=== PATIENT | male | born 1970 | race Caucasian/White ===

== ENCOUNTER 2022-02-21 12:19 | Day surgery (SDC) | payer BC, SELFPAY ==
--- NOTE | 2022-02-20 09:41 | HO.ANESPROP2 ---
Documented by User: Danette Aguirre NP 02/20/22 09:41 HPI - Anesthesia Eval Consult details Narrative: 51yo M for Upper Endoscopy and Colonoscopy [facility] [place] Past Medical History Medical History GERD (gastroesophageal reflux disease) HTN (hypertension) Hyperlipidemia Surgical History Surgical History History of appendectomy S/P excision of lipoma Social History Social History Patient Tobacco Use Status: Never used Tobacco Substance Use Type Other:: edibles Are you DNR?: No Advance Directives: No Advance Directives Information Provided: Yes Meds Allergies Allergy/AdvReac Type Severity Reaction Status Date / Time No Known Allergies Allergy Verified 02/17/22 10:47 Home Medications Medication Instructions Recorded Confirmed Last Taken Type atorvastatin 10 mg tablet 10 mg PO DAILY 02/17/22 02/17/22 Unknown History lisinopril 10 mg tablet 10 mg PO BID 02/17/22 02/17/22 Unknown History omeprazole 20 mg capsule,delayed 20 mg PO DAILY 02/17/22 02/17/22 Unknown History release Exam Exam Date and Time: February 20, 2022 0941 Assessment and Plan Assessment Anesthesia Assessment: Chart Reviewed Documented by User: Alyce Nails MD 02/21/22 15:53 [facility] [place] Past Medical History Medical History GERD (gastroesophageal reflux disease) HTN (hypertension) Hyperlipidemia Family History Family history of problems with anesthesia: No Surgical History Surgical History History of appendectomy S/P excision of lipoma History of Problems with Anesthesia: No Social History Social History Patient Tobacco Use Status: Never used Tobacco Substance Use Type Other:: edibles Are you DNR?: No Advance Directives: No Advance Directives Information Provided: Yes Meds Allergies Allergy/AdvReac Type Severity Reaction Status Date / Time No Known Allergies Allergy Verified 02/17/22 10:47 Home Medications Medication Instructions Recorded Confirmed Last Taken Type atorvastatin 10 mg tablet 10 mg PO DAILY 02/17/22 02/17/22 Unknown History lisinopril 10 mg tablet 10 mg PO BID 02/17/22 02/17/22 Unknown History omeprazole 20 mg capsule,delayed 20 mg PO DAILY 02/17/22 02/17/22 Unknown History release Exam Height,Weight and Vital Signs: Height 5 ft 9 in Weight 103.873 kg Vital Signs Temp Pulse Resp BP Pulse Ox O2 Del Method 97.9 F 72 16 149/94 H 97 02/21/22 13:04 02/21/22 13:04 02/21/22 13:04 02/21/22 13:04 02/21/22 13:04 02/21/22 13:04 Airway Mallampati Class: I TM Dist: >3cm Neck ROM: Full Loose/Missing/Broken Teeth: No (Per patient) Heart: RRR Lungs: CTAB Assessment and Plan Assessment Anesthesia Assessment: Anesthesia Plan Discussed Final Anesthetic Review Family History of Problems with Anesthesia: No History of Problems with Anesthesia: No NPO: Yes ASA Class: II Final Preanesthetic Review: No Changes in Pt Med Stat, Meds/Allgs Chart Reviewed, Consent Obtained/Reviewed and Anes Risks/Benef Reviewed Patient Risk: Low Procedure Risk: Low Assessment/Block/Sedation in SS: Assess/Block/Sedation-SS Anesthetic Plan Anesthetic Plan: MAC: Disposition: Standard PACU
[2022-02-21 13:04] VITALS: BP 149/94; PULSE 72; RESP 16; TEMP 36.6; O2SAT 97; BMI 33.7
[2022-02-21 13:09] VITALS: BMI 33.7
[2022-02-21] MEDS: Lactated Ringers 1,000 ML 100 ML IVCONT (13:17)
--- NOTE | 2022-02-21 13:40 | MHC.SHP ---
Pre-Procedural Eval Section A Date of Service: 02/21/22 The patient is an INPATIENT: No Changes since office visit: No Cold of Flu in the past 2 weeks, No New Medical Problems, No Changes in Medication and No Patient answered all questions The History & Physical has been completed within 30 days and I have reviewed it.: Yes Section B Chief Complaint: screening,reflux Allergies: Allergies Allergy/AdvReac Type Severity Reaction Status Date / Time No Known Allergies Allergy Verified 02/17/22 10:47 Plan I have reviewed the history and physical and performed a pertinent physical examination on my patient. No changes have occurred unless specified.
[2022-02-21 14:23] VITALS: BP 125/78; PULSE 72; RESP 16; TEMP 36.4; O2SAT 98
--- NOTE | 2022-02-21 14:29 | P.BOP_ITS ---
Brief Operative Note Date of Service: 02/21/22 Pre-op diagnosis: gerd,screening Post-op diagnosis: same (gastric and colon polyps) Procedure: egd, colonoscopy Surgeon: Kam Page Anesthesia: MAC Was an Student Education Specialist used for this Procedure?: No Estimated blood loss (mL): 5 Pathology: other Condition: stable Disposition: PACU
[2022-02-21 14:38] VITALS: BP 150/89; PULSE 72; RESP 18; TEMP 36.4; O2SAT 98
--- NOTE | 2022-02-21 23:58 | OP_ITS ---
SURGEON: Kam Page MD INDICATIONS: 1. Gastroesophageal reflux disease. 2. Colon cancer screening. PREOPERATIVE DIAGNOSIS: POSTOPERATIVE DIAGNOSIS: PROCEDURE PERFORMED: 1. Upper endoscopy with biopsy. 2. Colonoscopy to the terminal ileum with biopsy and snare polypectomy. ESTIMATED BLOOD LOSS: COMPLICATIONS: ANESTHESIA: ASSISTANTS: SPECIMENS: MEDICATIONS: Monitored anesthesia care. DESCRIPTION OF PROCEDURE: History and physical were performed. The risks and benefits of the procedure were explained to the patient. Informed consent was obtained. The patient was placed in the left lateral decubitus position. The Olympus video gastroscope was introduced into the esophagus, stomach, and duodenum. Examination was performed and the scope was removed. He was repositioned for colonoscopy. A digital rectal exam was performed and was found to be normal. The Olympus pediatric video colonoscope was introduced into the rectum and advanced to the cecum without difficulty. The cecum was identified by transillumination, palpation, and identification of ileocecal valve. Examination was performed and the scope was removed. He tolerated both procedures well and was returned to recovery area in stable condition. 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 Biopsies were obtained from the EG junction. There was no hiatal hernia. Stomach: The stomach showed no evidence of masses or ulcers. There are multiple less than 10 mm polyps in the body and fundus consistent with fundic gland polyps, 2 of these were biopsied. Antral biopsies were obtained to rule out H pylori. Duodenum: The bulb and second portion were normal. COLONOSCOPY: The terminal ileum was normal. In the cecum on the ileocecal valve was a 7 mm polyp, which was removed with a cold snare and recovered via suction. A 2nd polyp at 70 cm measuring less than 5 mm was removed with biopsy forceps. The final polyp at 20 cm measuring approximately 8 mm was removed with a hot snare. No other polyps were identified. Mild diverticulosis was seen. Retroflexed examination showed small internal hemorrhoids. IMPRESSION: 1. Gastroesophageal reflux disease. 2. Gastric polyps. 3. Colon polyps. RECOMMENDATION: Follow up biopsy results. MD SCOT Chi/ANANDA / [id number]
== END 2022-02-21 14:55 | disposition home or self-care (01) ==
PROVIDERS: PCP Internal Medicine; Visit Provider Internal Medicine Gastroenterology
PROC: (CPT 45385; principal; 2022-02-21 13:30)
DX: Z12.11 Encounter for screening for malignant neoplasm of colon (principal); D12.0 Benign neoplasm of cecum; D12.5 Benign neoplasm of sigmoid colon; K63.5 Polyp of colon; K57.30 Diverticulosis of large intestine without perforation or abscess without bleeding; K64.8 Other hemorrhoids; K21.9 Gastro-esophageal reflux disease without esophagitis; K31.7 Polyp of stomach and duodenum; I10 Essential (primary) hypertension; E78.5 Hyperlipidemia, unspecified; Z79.899 Other long term (current) drug therapy
CPT/HCPCS: 45385; 45380; 43239; 88305; 88342; J3010